=== PATIENT | female | born 1960 | race Caucasian/White ===

== ENCOUNTER 2018-05-08 09:05 | Day surgery (SDC) | payer OTHER ==
[~2018-05-08] VITALS: Ht 165.1 cm; Wt 46.3 kg
[~2018-05-08 09:05] MED LIST: ALPR-475 PO; BUPR300T49 PO; MELO15TA6 PO
[2018-05-08] MEDS ORDERED: LACTATED RINGERS 1,000 ML IV SCH (09:39)
[2018-05-08] MEDS ORDERED: OXYcodone IR 5MG TABLET PO ONE (10:00)
[2018-05-08] MEDS ORDERED: ACETAMINOPHEN 500 MG TABLET PO ONE (10:00)
[2018-05-08] MEDS ORDERED: GABAPENTIN 300 MG CAPSULE PO ONE (10:00)
[2018-05-08 10:07] VITALS: BP 158/91
[2018-05-08] MEDS ORDERED: FENTANYL PF 250 MCG/5ML ONE (10:15)
[2018-05-08] MEDS ORDERED: GLYCOPYRROLATE 0.2MG/1ML, 5ML ONE (10:16)
[2018-05-08] MEDS ORDERED: DEXAMETHASONE 4 MG/ML, 1ML ONE (10:16)
[2018-05-08] MEDS ORDERED: ONDANSETRON 2MG/ML, 2ML ONE (10:16)
[2018-05-08] MEDS ORDERED: NEOSTIGMINE 1 MG/ML, 10ML ONE (10:16)
[2018-05-08] MEDS ORDERED: ROCURONIUM 10MG/ML,5ML ONE (10:16)
[2018-05-08] MEDS ORDERED: PROPOFOL 10 MG/ML, 20ML ONE (10:16)
[2018-05-08] MEDS ORDERED: SUCCINYLCHOLINE 20 MG/ML, 10ML ONE (10:16)
[2018-05-08] MEDS ORDERED: CEFAZOLIN 1,000 MG ONE (10:16)
[2018-05-08] MEDS ORDERED: LABETALOL 5MG/ML, 20ML IV PRN (10:30)
[2018-05-08] MEDS ORDERED: OXYcodone 5 MG/5 ML ORAL.SOL UDC PO PRN (10:30)
[2018-05-08] MEDS ORDERED: HYDROmorphone 1 MG/ML, 1ML IV PRN (10:30)
[2018-05-08] MEDS ORDERED: FENTANYL PF 100 MCG/2ML IV PRN (10:30)
[2018-05-08] MEDS ORDERED: MEPERIDINE/PF 25MG/0.5ML IVPush PRN (10:30)
[2018-05-08] MEDS ORDERED: PROMETHAZINE 25 MG/ML, 1ML IV PRN (10:30)
[2018-05-08] MEDS ORDERED: hydrALAzine 20 MG/ML, 1ML IV PRN (10:30)
[2018-05-08] MEDS ORDERED: PROCHLORPERAZINE 5 MG/ML, 2ML IV PRN (10:30)
[2018-05-08] MEDS ORDERED: DIPHENHYDRAMINE 50 MG/ML, 1ML IVPush PRN (10:30)
[2018-05-08] MEDS ORDERED: BUPIVACAINE/PF-EPI 0.5% 1:200K INFIL ONE (11:49)
[2018-05-08] MEDS ORDERED: BACITRACIN 50,000 UNIT IRRIG ONE (11:51)
[2018-05-08] MEDS ORDERED: THROMBIN 5,000 UNIT VIAL TP ONE ×2 (11:51→12:47)
[2018-05-08] MEDS ORDERED: MIDAZOLAM 1 MG/ML, 2ML ONE (12:34)
[2018-05-08] MEDS ORDERED: BUPIVACAINE/PF-EPI 0.5% 1:200K ONE (12:46)
[2018-05-08] MEDS ORDERED: BACITRACIN 50,000 UNIT ONE (12:47)
[2018-05-08] MEDS ORDERED: FENTANYL PF 100 MCG/2ML ONE (12:49)
[2018-05-08] MEDS ORDERED: OXYcodone 5 MG/5 ML ORAL.SOL UDC ONE (13:16)
[2018-05-08] MEDS ORDERED: OXYcodone/APAP 5/325MG TABLET PO PRN (15:00)
== END 2018-05-08 15:20 | disposition home or self-care (01) ==
LOC: OUT 09:05
PROVIDERS: ATTEND Neurological Surgery
DX: M48.061 Spinal stenosis, lumbar region without neurogenic claudication (principal); M54.16 Radiculopathy, lumbar region; F17.210 Nicotine dependence, cigarettes, uncomplicated; F41.9 Anxiety disorder, unspecified; F32.9 Major depressive disorder, single episode, unspecified; Z72.89 Other problems related to lifestyle; Z90.710 Acquired absence of both cervix and uterus
CPT/HCPCS: 63047; 63048; 72100; J0330; J0690; J1100; J2250; J2405; J2704; J2710; J3010; J3490; J7120

== ENCOUNTER → 2020-07-02 | Outpatient (CLI) | payer OTHER ==
[~2020-07-02] MED LIST changes: -ALPR-475 PO; +ALPR0.5T7 PO; +GABA100C PO
[2020-07-02 12:09] LABS: CALCIUM 9.6 mg/dL (8.5-10.1)
[2020-07-02 12:12] LABS: MEAN CORPUSCULAR HGB CONC 32.2 g/dL (32.4-35.8); MEAN PLATELET VOLUME 7.2 fL (7.4-10.4); PLATELET COUNT 257 x10^3/uL (130-400); RED BLOOD COUNT 3.93 x10^6/uL (3.82-5.3); RED CELL DISTRIBUTION WIDTH 14.3 % (9.6-15.2)
[2020-07-02 12:14] LABS: INTERNATIONAL NORMALIZED RATIO 0.94 (0.93-1.1)
[2020-07-02 12:33] LABS: ANION GAP 5 mmol/L (5-15); CHLORIDE 107 mmol/L (98-107)
[2020-07-02 12:43] LABS: MD YES
[2020-07-02 13:05] LABS: EOS#(MANUAL) 0.41 x10^3/uL (0.0-0.4); EOS% (MANUAL) 1 % (1-7); LYMPH#(MANUAL) 34.28 x10^3/uL (1-3.4); LYMPHS% (MANUAL) 83 % (22-44); MONOS#(MANUAL) 0.41 x10^3/uL (0.3-2.7); MONOS% (MANUAL) 1 % (2-9); SEGS% (MANUAL) 15 % (42-75)
[2020-07-02 13:08] LABS: <PLATELET ESTIMATE> ADEQUATE; <PLT MORPHOLOGY> NORMAL PLT MORPH; <RBC MORPHOLOGY> NORMAL; SMUDGE CELLS 2+
== END | disposition home or self-care (01) ==
LOC: STAR 11:04
PROVIDERS: ATTEND Neurological Surgery
DX: Z01.812 Encounter for preprocedural laboratory examination (principal); Z20.828 Contact with and (suspected) exposure to other viral communicable diseases; J84.10 Pulmonary fibrosis, unspecified
CPT/HCPCS: 36415; 71046; 80048; 85025; 85610; 85730; 87635; 93005

== ENCOUNTER 2020-07-06 05:47 | Day surgery (SDC) | payer OTHER ==
[~2020-07-06] VITALS: Ht 165.1 cm; Wt 47.1 kg
[2020-07-06 06:23] VITALS: BP 161/82
[2020-07-06] MEDS ORDERED: CHLORHEXIDINE 15 ML UDC MM ONE (06:30)
[2020-07-06] MEDS ORDERED: LACTATED RINGERS 1,000 ML IV SCH (06:30)
[2020-07-06] MEDS ORDERED: BUPIVACAINE/PF 0.5% ONE (07:01)
[2020-07-06] MEDS ORDERED: EPINEPHRINE 1 MG/ML, 1ML ONE (07:01)
[2020-07-06] MEDS ORDERED: BACITRACIN 50,000 UNIT ONE (07:02)
[2020-07-06] MEDS ORDERED: MIDAZOLAM 1 MG/ML, 2ML ONE (07:03)
[2020-07-06] MEDS ORDERED: FENTANYL PF 250 MCG/5ML ONE (07:03)
[2020-07-06] MEDS ORDERED: LABETALOL 5MG/ML, 20ML IV PRN (07:30)
[2020-07-06] MEDS ORDERED: FENTANYL PF 100 MCG/2ML IV PRN (07:30)
[2020-07-06] MEDS ORDERED: PROMETHAZINE 25 MG/ML, 1ML IVPush PRN (07:30)
[2020-07-06] MEDS ORDERED: HYDROmorphone 1 MG/ML, 1ML INJ IVPush PRN (07:30)
[2020-07-06] MEDS ORDERED: ACETAMINOPHEN 325 MG TABLET PO PRN (07:30)
[2020-07-06] MEDS ORDERED: OXYcodone 5 MG/5 ML ORAL.SOL UDC PO PRN (07:30)
[2020-07-06] MEDS ORDERED: MEPERIDINE/PF 25MG/0.5ML IVPush PRN (07:30)
[2020-07-06] MEDS ORDERED: DIPHENHYDRAMINE 50 MG/ML, 1ML IVPush PRN (07:30)
[2020-07-06] MEDS ORDERED: ONDANSETRON 2MG/ML, 2ML IVPush PRN (07:30)
[2020-07-06] MEDS ORDERED: DIAZEPAM 5 MG/ML, 2ML IVPush PRN (07:30)
[2020-07-06] MEDS ORDERED: hydrALAzine 20 MG/ML, 1ML IV PRN (07:30)
[2020-07-06] MEDS ORDERED: DEXAMETHASONE 4 MG/ML, 1ML ONE (07:35)
[2020-07-06] MEDS ORDERED: ONDANSETRON 2MG/ML, 2ML ONE (07:35)
[2020-07-06] MEDS ORDERED: PROPOFOL 10 MG/ML, 20ML ONE (07:35)
[2020-07-06] MEDS ORDERED: CEFAZOLIN 1,000 MG ONE (07:35)
[2020-07-06] MEDS ORDERED: ROCURONIUM 10 MG/ML,10ML ONE (07:35)
[2020-07-06] MEDS ORDERED: SUGAMMADEX 200 MG/2 ML IVPush ONE (07:35)
[2020-07-06] MEDS ORDERED: BUPIVACAINE/PF-EPI 0.5% 1:200K INFIL ONE (08:09)
== END 2020-07-06 10:50 | disposition home or self-care (01) ==
LOC: OUT 05:47
PROVIDERS: ATTEND Neurological Surgery
DX: M48.061 Spinal stenosis, lumbar region without neurogenic claudication (principal); M71.38 Other bursal cyst, other site; M54.16 Radiculopathy, lumbar region; F32.9 Major depressive disorder, single episode, unspecified; F17.200 Nicotine dependence, unspecified, uncomplicated; Z79.1 Long term (current) use of non-steroidal anti-inflammatories (NSAID); Z79.899 Other long term (current) drug therapy; Z98.890 Other specified postprocedural states
CPT/HCPCS: 63267; 72100; J0171; J0690; J1100; J2250; J2405; J2704; J3010; J7120